=== PATIENT | male | born 2000 | race Caucasian/White ===

== ENCOUNTER 2023-09-11 18:22 | Observation (INO) | payer BC, SELFPAY ==
[2023-09-11] VITALS (27 sets, daily range): BP systolic 101–127; BP diastolic 60–85; PULSE 74–126; BMI 27.1
[2023-09-11] MEDS: NSS 1000 IV ×3 (07:52→16:37)
--- NOTE | 2023-09-11 07:58 | ED.GENMED ---
Addendum entered and electronically signed by YVON Mills 09/11/23 15:16:
Pt admitted to resident service Alfonso Murphy attending as per DR Lundberg
Original Note:
History of Present Illness
General
Chief Complaint: Dizziness
Source: patient
Exam Limitations: none
Time Seen by Provider: 09/11/23 07:27
Nursing documentation reviewed up to this point in time: agreed with
Travel History
Have you had any contact with someone who has COVID-19?: No
Do you have any symptoms of coronavirus? Fever > 100 degrees, chills, cough, shortness of breath, sore throat, loss of taste or smell, muscle aches, or headache?: No
History of Present Illness
History of Present Illness:
Patient is a 23-year-old male who reports he got up this morning and felt sick. He walked up steps to get something and then was standing and felt very lightheaded like he was in a pass out. This occurs when he stands up. He denies any recent
illness. He reports he felt fine yesterday. He does have a history of GI issues and is currently the process of being worked by [employer] this involves having diarrhea every day that 2-3 times a day mostly soft. This is unchanged. He denies any
associated chest pain shortness of breath. He denies any recent illness cough . He did have chills in bed this am.
He denies any abdominal pain.
He reports he normally is a good water drinker. Denies any excessive exercise, denies any chest pain shortness of breath. He denies any recent illness fever chills. He denies any drug use. He does not smoke. He only drinks alcohol socially
1�twice a month.
Review of Systems
Review of Systems
Allergies reviewed?: Yes
Other source history: family
All Other Systems: ROS reviewed and negative except as documented in HPI and ROS
Constitutional: Reports chills; Denies fever or fatigue
Respiratory: Reports no symptoms
Cardiac: Reports other (near syncope ); Denies chest pain or palpitations
ABD/GI: Reports no symptoms
: Reports no symptoms
Musculoskeletal: Reports no symptoms
Skin: Reports no symptoms
Neurological: Reports dizzy; Denies headache
Psychiatric: Reports no symptoms
Phy Exam
General Physical Exam
General Presentation: no apparent distress
General age: appears stated age
General Skin: warm and dry
General Habitus: normal
General Mental: alert
General Hydration: dry mucous membranes
Cardiovascular Exam
Cardiovascular Exam: regular rate/rhythm, no murmur and tachycardia
Pulmonary Exam
Pulmonary Exam: lungs clear and no respiratory distress
Neurological Exam
Neurological Exam: alert and oriented x3
Musculoskeletal Exam
Musculoskeletal Exam: full ROM
Skin Exam
Skin Exam: normal color and warm/dry
Psychiatric Exam
Psychiatric Exam: normal mood/affect
Course
Orders/Labs/Results
Orders:
Orders
09/11/23 07:22
Electrocardiogram (*1) Urgent
Reason for Study: Vertigo / Dizzy
EKG- Treatment ONCE
09/11/23 07:51
Complete Blood Count/With Diff Urgent
Comprehensive Metabolic Panel Urgent
Creatine Phosphokinase Urgent
TSH Reflex To Free T4 Urgent
Comment: ADD ON
0.9% Sodium Chloride 1000 ml [Nss] 1,000 ml IV BOLUS
09/11/23 07:55
COVID-19 Antigen Urgent
Source: Nasal Swab
Influenza A+B Rapid Molecular Urgent
CHANELLE Source: Nasal Swab
Specimen Description:
09/11/23 09:51
0.9% Sodium Chloride 1000 ml [Nss] 1,000 ml IV BOLUS
09/11/23 11:10
Add On- LAB Urgent
Tests Added?: cpk, tsh with reflexive t4
09/11/23 12:00
UA Reflex to Culture [Urinalysis Reflex To Culture] Urgent
Date Specimen was Collected: 09/11/23
Time Specimen was Collected: 11:08
Abnormal Lab Results
09/11/23 09/11/23
07:51 12:00
Absolute Lymphs (auto) 0.5 L 10^3/uL
(1.2-3.4)
Neutrophils % 84.5 H %
(42.2-75.2)
Lymphocytes % 7.3 L %
(20.5-51.1)
Glucose 109 H mg/dl
(70-99)
Urine Ketones Trace A
(Negative)
09/11/23 07:51
09/11/23 07:51
Vital Signs
Initial and Last Documented VS:
Initial Vital Signs
Temp Pulse Resp BP Pulse Ox
99.5 F 105 16 127/84 100
09/11/23 07:18 09/11/23 07:18 09/11/23 07:18 09/11/23 07:18 09/11/23 07:18
Last Documented Vital Signs
Temp Pulse Resp BP Pulse Ox
99.5 F 110 32 104/80 99
09/11/23 07:18 09/11/23 12:11 09/11/23 12:11 09/11/23 12:11 09/11/23 12:11
Research Nutritionist consulted with Physician
Research Nutritionist consulted with physician?: Yes
Name of Physician Consulted: noh
MDM/Problems Addressed
Differential Diagnosis Includes:
Not limited to dehydration, virus
MDM/Problems Addressed:
Patient is a 23-year-old male who presented to the ER today for evaluation of dizziness, nausea. Patient started with symptoms this morning. Who presents awake alert he appears dehydrated that he reports he does drink water. He is tachycardic
with sitting or standing and feels very symptomatic dizzy nauseous and feels he is almost in a pass out. He had no associated chest pain. He was given 2 and half liters and continues to feel symptomatic worse with position change on his heart rate
does jump to the 120s with standing. He does not feel well to go home will admit for continued symptoms . case d/c w/ DR Armenta.
*Pulse Oximetry
Patient hypoxic: no
*EKG
Interpreted by ED Provider?: Yes
Heart Rate: 82
Rate: normal
Rhythm: sinus
Ischemia: no ischemia
*Critical Care Note
Total Time (30-74mins, 75-104mins- exclusive of procedures): Not Applicable
ED Attending Note
-
Portions of this chart may have been created with voice recognition software.� Occasional wrong word or��sound alike� substitutions may have occurred due to the inherent limitations of voice recognition software.
Discharge Plan
Departure
Patient Disposition: Admit
Date of Disposition: 09/11/23
Time of Disposition: 12:52
Admit to: Med/Surg
Admit to doctor: hospitalist
Presentation/result/management discussed w/ accepting MD/DO: Hospitalist
Patient with high blood pressure during this ER visit?: No
Condition: Fair
Covid-19: Negative COVID-19
Discharge Problem:
Dizziness
Referrals:
Aroldo Gillette CRNP [Family Provider] -
Interventions
Interventions:
*Risk Screen - Suicide Last Done: 09/11/23 07:36
*General Assessment Last Done: 09/11/23 07:36
*Neglect/Abuse Screening Last Done: 09/11/23 07:36
ED- Fall Risk Assessment Last Done: 09/11/23 07:36
*ED COVID-19 Vaccine History Last Done: 09/11/23 07:18
ED- Neurological Assessment Last Done: 09/11/23 07:36
ED- Cardiac Assessment Last Done: 09/11/23 07:36
Discharge Date and Time
Print Language: DANISH
[2023-09-11 08:10] LABS: % Basophils 0.2 % (0-2); % Eosinophils 1.1 % (0-6); % Immature Granulocytes 0.3 % (0-0.5); % Lymphocytes 7.3 % (20.5-51.1); % Monocytes 6.6 % (1.7-9.3); % Neutrophils 84.5 % (42.2-75.2); Absolute Eosinophils 0.1 10^3/uL (0-0.7); Absolute Lymphocytes 0.5 10^3/uL (1.2-3.4); Absolute Monocytes 0.4 10^3/uL (0.1-0.6); Absolute Neutrophils 5.6 10^3/uL (1.4-6.5); Hematocrit 42.2 % (39.0-52.0); Hemoglobin 14.7 g/dL (13.0-18.0); Mean Corp Hgb Conc. 34.8 g/dL (33.0-37.0); Nucleated Red Blood Cells % 0 % (-); Platelet Count 161 10^3/uL (130-400); Red Blood Cell Count 4.74 10^6/uL (4.70-6.10); Red Cell Dist. Width 11.9 % (11.5-14.5); White Blood Cell Count 6.6 10^3/uL (4.8-10.8)
[2023-09-11 08:24] LABS: ALT (SGPT) 27 U/L (0-50); AST (SGOT) 25 U/L (17-59); Albumin 4.2 g/dl (3.5-5.0); Alkaline Phosphatase 57 U/L (38-126); Blood Urea Nitrogen 16 mg/dl (9-20); Calcium 9.3 mg/dl (8.4-10.2); Carbon Dioxide 25 mmol/L (22-30); Chloride 103 mmol/L (98-107); Estimated Creatinine Clearance > 125 ml/min; Glucose 109 mg/dl (70-99); Potassium 3.9 mmol/L (3.5-5.1); Sodium 136 mmol/L (135-145); Total Bilirubin 1.1 mg/dl (0.2-1.3); Total Protein 6.8 g/dl (6.3-8.2); eGFR > 60.00
[2023-09-11 08:25] LABS: COVID-19 Antigen Negative (Negative)
[2023-09-11 11:47] LABS: Creatine Phosphokinase 75 U/L (55-170)
[2023-09-11 12:13] LABS: TSH Reflex To Free T4 1.69 uIU/ml (0.47-4.68)
[2023-09-11 12:26] LABS: Urine Albumin Negative (Neg - Trace); Urine Bilirubin Negative (Negative); Urine Character Clear (Clear); Urine Color Yellow; Urine Glucose Negative (Negative); Urine Ketone Trace (Negative); Urine Leukocyte Negative (Negative); Urine Nitrite Negative (Negative); Urine Occult Blood Negative (Negative); Urine Specific Gravity 1.025 (<1.030); Urine Urobilinogen Negative (Neg - 1+)
--- NOTE | 2023-09-11 20:30 | HPS.HSE ---
Addendum entered and electronically signed by Tera Murphy MD 09/11/23 22:53:
Attending Addendum-
I performed a history and physical exam of the patient and discussed his management with the resident. I reviewed the resident's note and agree with the documented findings and plan of care Patient presents with mother for presyncope and weakness.
Has had a significant weight loss over last couple of months. recently switched from Adderall to Ritalin and dose increased. Currently patient still getting tachycardic on standing and feeling dizzy in ed. Attempted to DC from ED with close follow
up but still symptomatic. Full 12 point ROS reviewed and negative except as documented Exam- vitals reviewed in chart GEN-nad heart RRR lungs clear abd soft LE no edema Plan:
# Dizziness
- check orthostatic vitals
- possible cardiac med side effect
- may need to decrease dose ritalin
- likely has component of dehydration as well- cont IVF
- check TSH/HBa1c
- cards c/s may need monitor
- check echo
- possible POTS- add fludrocortisone
# ADHD-
- OP titration of meds
- cont ritalin for now but decrease dose by half
# Anxiety
- DC hydroxazine
Dispo- DC home in am after seen by cards
Time spent coordinating care, review of plan of care with resident, review of records, PDMP, med rec, consults, notes, labs, rads, d/w nursing and mother - 76 mins
Original Note:
Family Physician
-
Family Physician: YVON Atkins
Chief Complaint
-
Dizziness
History of Present Illness
23-year-old male with history of ADHD, GI problems, migraines, presents to the ED in company of his mother with complaints of dizziness and mild nausea on standing. Onset was this morning when he got out of bed and tried to walk up some stairs. He
became dizzy and felt 'like I was going to pass out'. Symptoms improved with rest. Denies fever but notes chills in the morning mild headache. HR noted to rise from 60s to 140s in ED when pt got up from supine position to use the bathroom. Denies
chest pain, shortness of breath, recent illness or cough. History of episodic dizziness and fainting noted since 20 years of age. Episodes usually accompanied tachycardia, and are notably worse in hot weather. He has GI-related poor appetite weight
loss of about 40-50lbs in last 2 months, but stays hydrated. He was last evaluated at [facility] in 2021, but notes that multiple ED visits over the years resulted in normal EKG and discharge to home. He has never been evaluated by a clinical partner.
He recalls normal active childhood with normal activity, participation in sports, without symptoms.
He also has a history of panic attacks, with similar symptoms.
Medical History
Past Medical History
Past Medical History: Reports Other (ADHD, chronic diarrhea, migraine)
Additional Past Medical History:
ADHD, chronic diarrhea, migraines
Past Surgical History: Reports Other ([place] teeth removal)
Additional Past Surgical History:
[place] teeth removal 5 years ago
Social History
Tobacco: Non-smoker
Alcohol: Occasional (1 or 2 drinks a month)
Drug: None
Personal: Single
Living: With Family
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
Family History
Family History: Hypertension and Other (Hypothyroidism, GI problems)
Allergies / Home Medications
Allergies
Allergy/AdvReac Type Severity Reaction Status Date / Time
amoxicillin Allergy Unknown Verified 09/11/23 07:21
Penicillins Allergy Unknown Verified 09/11/23 07:21
Home Medications
methylphenidate HCl 20 mg tablet 20 mg PO BID 09/11/23
Trazodone 50 mg daily at bedtime as needed for insomnia
Hydroxyzine 100 mg p.o. daily as needed for panic disorder
Allergy/Medication List:
Allergies
Allergy/AdvReac Type Severity Reaction Status Date / Time
amoxicillin Allergy Unknown Verified 09/11/23 07:21
Penicillins Allergy Unknown Verified 09/11/23 07:21
Review of Systems
-
History Source: Patient and Family
A 12 point ROS was completed and negative except as noted: Yes
Constitutional: Reports Weight Loss and Other (poor appetite); Denies Fever
Respiratory: Reports No Symptoms; Denies Cough or Trouble Breathing
Cardiac: Reports Palpitations and Syncope (presyncope); Denies Chest Pain
Abdomen/GI: Reports Abdominal Pain and Diarrhea; Denies Nausea or Vomiting
: Denies Dysuria, Difficulty Voiding or Bleeding
Neurological: Reports Dizzy and Headache
Physical Exam
Vital Signs
Vital Signs
Temp Pulse Resp BP Pulse Ox
99.1 F 69 18 121/80 100
09/11/23 16:40 09/11/23 16:40 09/11/23 16:40 09/11/23 16:40 09/11/23 16:40
Physical Exam
General: Well Developed, Well Nourished, No Apparent Distress, Comfortable and Conversant; No Respiratory Distress
HEENT: NormoCephalic, Anicteric and Other (Dry mucous membranes)
Respiratory: Clear and Non Labored Respirations; No Wheezes, Rales, Rhonchi, Crackles or Accessory Resp Muscle Use
Cardiac: S1/S2, Regular Rhythm and Tachycardia (On standing)
GI: Soft, Non Tender and Non Distended
Musculoskeletal: No Clubbing, No Cyanosis and No Edema
Skin: Warm, Dry and Rash (Diffuse rash on back)
Neuro: Awake, Alert and Oriented
Psych: Calm
Laboratory Results
-
09/11/23 07:51
09/11/23 07:51
Laboratory Results
Total Bilirubin 1.1 mg/dl (0.2-1.3) 09/11/23 07:51
AST 25 U/L (17-59) 09/11/23 07:51
ALT 27 U/L (0-50) 09/11/23 07:51
Alkaline Phosphatase 57 U/L (38-126) 09/11/23 07:51
Impression/Plan
-
IMPRESSION: 23-year-old male with history of episodic presyncope/syncope, history of ADHD, chronic diarrhea, migraines, presented to the ED with dizziness.
PLAN:
Acute problems
Dizziness:
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
ADHD
Panic disorder
Chronic diarrhea
#Dizziness:
Dehydration vs POTS, vs other cause of presyncope
EKG showed premature supraventricular complexes, sinus rhythm
TSH normal
BMP normal
-Fluid boluses in ED
-Symptoms persist after fluid boluses, will observe overnight. Cardiology consult in a.m.
#ADHD
Continue methylphenidate
#Panic disorder:
Hold hydroxyzine due to possible adverse effect of dizziness
Insomnia:
Hold trazodone due to possible adverse effect of dizziness, and ineffectiveness per patient
Chronic diarrhea:
Longstanding, stable
Is actively in GI workup outpatient
Electrolytes stable
DVT prophylaxis: SCD
CODE STATUS: Full code
[2023-09-12] VITALS (10 sets, daily range): BP systolic 115–128; BP diastolic 67–89
[2023-09-12] MEDS: NSS 1000 IV ×2 (00:58→11:50)
[2023-09-12 05:21] LABS: Blood Urea Nitrogen 7 mg/dl (9-20); Calcium 9.2 mg/dl (8.4-10.2); Carbon Dioxide 28 mmol/L (22-30); Chloride 104 mmol/L (98-107); Estimated Creatinine Clearance > 125 ml/min; Glucose 84 mg/dl (70-99); Potassium 3.7 mmol/L (3.5-5.1); Sodium 138 mmol/L (135-145); eGFR > 60.00
--- NOTE | 2023-09-12 06:48 | CON.CAR ---
Consultation
Consultation Request
Date/Time Consultation Requested: 09/11/2023 1815
Date/Time Consultation Performed: 09/12/2023 0630
Requesting Provider: Peyton Yuan MD
Performing Provider: Tylor Shi DO
Reason for Consultation: Palpitations
Medical History
-
Chief Complaint: Dizziness
History of Present Illness:
It is a pleasure to see Mr. Avery in consultation today. As you are aware, patient is a 23-year-old male with a past medical history significant for ADHD, panic disorder, chronic diarrhea and abdominal discomfort who presents due to worsening
dizziness and dehydration. Cardiology consulted for discussion on dehydration/dizziness and palpitations. Patient had reported lightheaded and dizziness with position changes at home and palpitations. The symptoms had worsened and he proceeded to
emergency department for further evaluation. Patient noted in the ER to have elevated heart rate with position changes when standing noting heart rate to increase above 100. Patient had improvement in symptoms following IV fluids overnight. In
discussion with patient, he reports a longstanding history of near-syncope with episodes of syncope associated with his panic disorder. He notes a prodrome prior to passing out including sensation of blood rushing away from his core to his
extremities with associated lightheadedness dizziness followed by syncope. Additionally, patient is experienced episodes of syncope associated with dehydration including most recently 2 weeks ago with severe upper and lower GI gastroenteritis and
syncope associated with rapid position change followed by emesis standing up again feeling lightheaded and dizzy and then passing out. 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
his jobs without complication but has noted once with dehydration associated with significant moving going from basement to the top floor he began to feel lightheaded and dizzy but symptoms abated following hydration. Patient has not undergone
cardiology evaluation in the past. Patient has undergone GI evaluation and is changing to a different GI doctor. Patient reports longstanding chronic diarrhea with multiple bowel movements per day which are affecting his life. He reports
hydration but no increased salt intake. He notes ADHD on Ritalin without improvement and plan for discontinuation. He notes panic disorder without improvement on hydroxyzine. Patient is a non-smoker, rare alcohol, no illicits. Patient does not
ingest caffeine. No family history of heart disease. No family history of channelopathy or sudden cardiac .
Past Medical History
Past Medical History: Other (See HPI)
Past Surgical History: Other ([place] teeth)
Social History
Tobacco: Non-Smoker
Alcohol: Occasional
Drug: None
Personal: Single
Living: With Family
Employment: Employed
Family History
Family History: Reviewed & Not Pertinent
Allergies / Home Medications
Allergy/AdvReac Type Severity Reaction Status Date / Time
amoxicillin Allergy Unknown Verified 09/11/23 07:21
Penicillins Allergy Unknown Verified 09/11/23 07:21
�Medication �Instructions �Recorded �Confirmed �Type
methylphenidate HCl 20 mg tablet 20 mg PO BID 09/11/23 09/11/23 History
Review of Systems
-
History Source: Patient
All other systems: Negative unless noted
Constitutional: Weight Loss and Other (Poor appetite/hydration)
EENT: No Symptoms
Respiratory: No Symptoms
Cardiac: Palpitations
Abdomen/GI: Abdominal Pain and Diarrhea
: No Symptoms
Musculoskeletal: No Symptoms
Skin: No Symptoms
Neurological: Dizzy and Other (Syncope (none recent))
Endocrine: No Symptoms
Hematologic/Lymphatic: No Symptoms
Physical Exam
Vital Signs
Temp Pulse Resp BP Pulse Ox
99.1 F 58 15 112/70 96
09/11/23 16:40 09/11/23 23:45 09/11/23 23:45 09/11/23 23:00 09/11/23 23:45
Lab Results
09/11/23 07:51
09/12/23 04:42
Physical Exam
General: Well Developed, Well Nourished, No Apparent Distress and Comfortable
HEENT: Normocephalic, Anicteric and Moist Mucous Membranes
Respiratory: Clear and Non Labored Respirations
Cardiac: S1/S2, Regular Rhythm and Other (No murmur, rub, gallop; no carotid bruit appreciated)
Breast: Deferred by me
GI: Soft, Non Tender, Non Distended and Normal Bowel Sounds
Rectal: Deferred by Provider
Musculoskeletal: No Clubbing, No Cyanosis and No Edema
Skin: Warm and Dry
Neuro: Awake, Alert and Oriented
Psych: Calm
Impression / Plan
-
Primary: YVON Atkins
.
Assessment:
Dizziness, near syncope
- Noted in the setting of decreased fluid intake, chronic diarrhea
- HR increased with position changes, improved with IVF
- Occurring with positional change, chronic
- No syncope on admission; noted syncope 2 weeks ago with gastroenteritis
- EKG SR, PACs
Palpitations, chronic
- longstanding fluttering, mild
- Noted on admission with increased HR with position
- EKG SR, PACs; tele notes SR, PACs, brief PAT (p-wave morphology change); improved with hydration
Diarrhea, chronic, frequent
- follows with GI, recent provider change, undergoing extensive eval
Anxiety
ADHD
Recommendations
- 2D echocardiogram to assess cardiac size, shape,function, and valvular anatomy, if normal and patient stable, can likely DC for outpatient cardiology follow-up
- increased oral hydration in the setting of GI losses; if echo normal, can also add salt to diet to improve symptoms
- Conservative therapy including avoiding triggers such as hot weather/climates/environments, increased hydration, recumbent exercise, compression stockings, avoiding alcohol/caffeine
- Patient reporting that he plans to stop methylphenidate, this may also improve palpitations with discontinuation
- Outpatient monitor at follow-up visit
- Follow closely/frequently with PCP and GI; treatment for diarrhea will likely improve symptoms
Data Reviewed
-
EKG: Tracing Personally Visualized and interpreted
Radiology: Report Reviewed by me
Labs: Labs Reviewed by me
Old Records: Reviewed
[2023-09-12] MEDS: RITALIN 10 MG PO (08:17)
[2023-09-12] MEDS: FLORINEF 0.100000000000000006 MG PO (08:17)
[2023-09-12 08:56] LABS: Glycohemoglobin (HgbA1c) 5.5 % (4.0-5.6)
[2023-09-12] MEDS: ZOFRAN 4 MG PO (11:50)
[2023-09-12] MEDS: RITALIN PO (14:28)
--- NOTE | 2023-09-12 15:10 | W.DCSUMMARY ---
Addendum entered and electronically signed by Tera Murphy MD 09/13/23 00:06:
Attending Addendum:
Read reviewed and agree. See same day progress note for additional details. Patient DC'd on 1/2 dose ritalin (sctrip written) and PPI/H2 rubi, close follow up cards and GI.
Alfonso Murphy MD
Original Note:
Documented by User: Peyton Yuan MD, Resident 09/12/23 15:41
Discharge Summary
Discharge Data
Date of Admission: 09/11/23
Date of Discharge: 09/12/23
-
Pending Results: Yes
Additional Pending Results:
Echocardiogram
Hospital Course
Dell is a 23-year-old male with a history of episodic presyncope/syncope, history of ADHD, chronic diarrhea, migraines, who presented to the ED with dizziness and mild nausea. Onset was in the morning after he got out of bed.
HOSPITAL COURSE:
Dizziness:
At presentation, EKG showed premature supraventricular complexes, sinus rhythm. Vitals were stable in supine position, with notable increase in HR from 60s to 140s on standing. He was given IVF boluses in the ED, and was admitted after only minimal
symptoms relief. Echocardiogram performed in the morning. Cardiology was consulted in the morning, and recommendations included medication changes, and lifestyle changes, with keen outpatient cardiology follow up. Nause worsened in the morning as
well, and Ondansetron was provided.
#ADHD
Methylphenidate dose was halved (20mg to 10mg PO BID) due to possible adverse effect of tachycardia. To follow up soon with his psychiatrist.
#Panic disorder:
Hydroxyzine was held due to possible adverse effect of dizziness/tachycardia. Recommend follow up with psychiatrist
#Insomnia:
Trazodone was held due to possible adverse effect of dizziness/drowsiness, and ineffectiveness according to patient. Recommend follow up with PCP
#Chronic diarrhea:
Longstanding history, stable. Dell is actively in outpatient GI workup. Recommend OTC acid competency evaluated nurse aide, and keen followup with equity structurer
DVT prophylaxis during stay with sequential compression device
TSH normal
BMP normal
Echocardiogram: Pending results at time of discharge
Discharge Plan
-
Patient Disposition: Home (Routine Discharge)
Discharge Diagnosis/Procedures: Dizziness, nausea
Condition: Good
Diet: No restrictions
Additional Diets: Increase oral hydration
Activity: No restrictions and As tolerated
Driving Restrictions: As prior to admission
Bathing Restrictions: None
Activity Restrictions/Additional Instructions:
- Strong recommendation to follow up soon with cardiology
[facility]
[address] [place], [place]

- Please follow up with your PCP - Nain Kendrick, and psychiatrist within 2 weeks of discharge
- Please follow up with equity structurer
[facility]
[address]

Instructions: Dizziness, Nonvertigo, (DC)
Referrals:
Aroldo Gillette CRNP [Family Provider] -
Prescriptions:
New
ondansetron HCl 4 mg Tablet
4 mg PO Q8HPRN PRN (Reason: nausea) Qty: 10 0RF
Discontinued
hydroxyzine pamoate 100 mg Capsule
100 mg PO DAILYPRN PRN (Reason: panic attacks)
trazodone 50 mg Tablet
50 mg PO HSPRN PRN (Reason: insomnia)
methylphenidate HCl 20 mg Tablet
20 mg PO BID
Discharge Orders:
Discharge Patient (As Directed); Ordered 09/12/23
Ordered By: Peyton Yuan
Discharge Date and Time
Discharge Date/Time: 09/12/23 16:12
Print Language: BELGIAN

Documented by User: Tera [email or web address] MD 09/12/23 23:58
Discharge Summary
Discharge Data
Date of Admission: 09/11/23
Date of Discharge: 09/12/23
Discharge Plan
-
Patient Disposition: Home (Routine Discharge)
Discharge Diagnosis/Procedures: Dizziness, nausea
Condition: Good
Diet: No restrictions
Additional Diets: Increase oral hydration
Activity: No restrictions and As tolerated
Driving Restrictions: As prior to admission
Bathing Restrictions: None
Activity Restrictions/Additional Instructions:
- Strong recommendation to follow up soon with cardiology
[facility]
[address] [place], [place]

- Please follow up with your PCP - Nain Kendrick, and psychiatrist within 2 weeks of discharge
- Please follow up with equity structurer
[facility]
[address]

Instructions: Dizziness, Nonvertigo, (DC)
Referrals:
Aroldo Gillette CRNP [Family Provider] -
Prescriptions:
New
ondansetron HCl 4 mg Tablet
4 mg PO Q8HPRN PRN (Reason: nausea) Qty: 10 0RF
Discontinued
hydroxyzine pamoate 100 mg Capsule
100 mg PO DAILYPRN PRN (Reason: panic attacks)
trazodone 50 mg Tablet
50 mg PO HSPRN PRN (Reason: insomnia)
methylphenidate HCl 20 mg Tablet
20 mg PO BID
Discharge Orders:
Discharge Patient (As Directed); Ordered 09/12/23
Ordered By: Peyton Yuan
Discharge Date and Time
Discharge Date/Time: 09/12/23 16:12
Print Language: BELGIAN
--- NOTE | 2023-09-12 15:35 | CM ---
Addendum entered by Jose Garrison 09/12/23 15:48:
OBS status reviewed, OBS letter signed, placed on chart, pt has a copy.
Original Note:
CM following re: discharge planning.
Reviewed pt's chart, met with pt.
Pt is a 23 year old male admitted with primary dx of Dizziness, ADHD. Cardiology following.
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 Pt described himself as independent in all areas [employer], drives, works.
Pt is aware he will be discharged home today and he stated his mother will transport home.
PCP: Aroldo Gillette
Pharmacy: [facility].
D/C plan: home no needs. Mother to transport.
--- NOTE | 2023-09-12 19:06 | W.PN.HOSP.TC ---
Addendum entered and electronically signed by Tera Murphy MD 09/13/23 00:04:
Attending Addendum-I saw and evaluated the patient. I reviewed the resident�s note and agree with findings and plan as documented in the resident�s note.
Full 12 point ROS reviewed and negative except as documented patient complains of extreme nausea after breakfast time am. no vom. Exam- vitals reviewed in chart GEN-nad heart RRR lungs clear abd soft LE no edema Plan:
# Dizziness
- improved
- possible cardiac med side effect
- decrease dose ritalin
- likely has component of dehydration as well
- check TSH/HBa1c- neg
- cards c/s appreciate input likely due to dehydration and meds - f/u as OP
- check echo- wnl
- DC fludro
# Abd sxs/ nausea-
- start PPI
- fu OP GI
# ADHD-
- OP titration of meds
- cont ritalin for now but decrease dose by half
# Anxiety
- DC hydroxazine
Dispo- DC home with mother
Time spent coordinating care, review of plan of care with resident, review of records, DC planning, transition of care, med rec, consults, notes, labs, rads, d/w nursing and mother - 36 mins
Original Note:
Today's Communication/Plan
-
Discharge planning
Assessment / Plan
Assessment / Plan
IMPRESSION: 23-year-old male with history of episodic presyncope/syncope, history of ADHD, chronic diarrhea, migraines, presented to the ED with dizziness.
PLAN:
Acute problems
Dizziness:
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
ADHD
Panic disorder
Insomnia
Chronic diarrhea
#Dizziness:
Dehydration vs POTS, vs medication adverse effect vs other cause of presyncope
EKG showed premature supraventricular complexes, sinus rhythm
TSH normal
BMP normal
-Cardiology input appreciated
-Ondansetron for nausea
-IVF
-Discontinue fludrocortisone
-Preventive measures discussed with patient, encouraged outpatient cardiology follow up
#ADHD
Continue methylphenidate at halved dose 10mg PO BID due to dizziness and tachycardia
- Encourage outpatient psychiatry F/U
#Panic disorder:
Hold hydroxyzine due to possible adverse effect of dizziness
Insomnia:
Hold trazodone due to possible adverse effect of dizziness, and ineffectiveness per patient
Chronic diarrhea:
Longstanding, stable
Continue GI outpt workup
Electrolytes stable
DVT prophylaxis: SCD
CODE STATUS: Full code
Anticipated Discharge: Today
Subjective/Interval History
-
Date of Service: September 12, 2023
Pt complains of fatigue and nausea today. Dizziness mostly resolved.
Objective Data
-
Vital Signs:
Vital Signs
Temp Pulse Resp BP Pulse Ox
98.7 F 69 18 128/80 100
09/12/23 16:00 09/12/23 16:00 09/12/23 16:00 09/12/23 16:00 09/12/23 16:00
Review of Systems
-
History Source: Patient
Constitutional: Reports Fatigue
Respiratory: Reports No Symptoms
Cardiac: Reports No Symptoms; Denies Chest Pain or Palpitations
Abdomen/GI: Reports Nausea
Genitourinary: Reports No Symptoms and Dysuria
Neuro: Reports Dizzy
Physical Exam
-
General: Well Developed, Well Nourished and Other (appears uncomfortable)
HEENT: Normocephalic, Atraumatic, Moist Mucous Membranes and Anicteric
Respiratory: Clear to Auscultation and Non Labored Respirations; Negative Wheezes, Rales, Rhonchi, Crackles or Accessory Resp Muscle Use
Cardiac: Regular Rhythm and S1/S2; Negative Murmur, Rub, Calf Tenderness, Tachycardic or Bradycardic
GI: Soft, Nontender and Nondistended
Musculoskeletal: No Clubbing, No Cyanosis and No Edema
Skin: Warm, Dry and Rash (hyperpigmented macular rash on back)
Neuro: Awake, Alert and Oriented
Psych: Calm
== END 2023-09-12 16:12 | disposition home or self-care (01) ==
LOC: ED 18:22
PROVIDERS: Nurse Practitioner; Student in an Organized Health Care Education/Training Program; ADMITTING PHYSICIAN Family Medicine; CONSULT PHYSICIAN Internal Medicine Cardiovascular Disease; EMERGENCY PHYSICIAN Emergency Medicine; FAMILY PHYSICIAN Nurse Practitioner Family
DX: R42 Dizziness and giddiness (principal); R11.0 Nausea; R55 Syncope and collapse; R63.4 Abnormal weight loss; F90.9 Attention-deficit hyperactivity disorder, unspecified type; F41.0 Panic disorder [episodic paroxysmal anxiety]; R63.0 Anorexia; G47.00 Insomnia, unspecified; I49.1 Atrial premature depolarization; R00.2 Palpitations; E86.0 Dehydration; R19.7 Diarrhea, unspecified; G43.909 Migraine, unspecified, not intractable, without status migrainosus; Z83.79 Family history of other diseases of the digestive system; Z82.49 Family history of ischemic heart disease and other diseases of the circulatory system; Z83.49 Family history of other endocrine, nutritional and metabolic diseases; Z88.0 Allergy status to penicillin; Z11.52 Encounter for screening for COVID-19
CPT/HCPCS: 80048; 80053; 81003; 82550; 83036; 84443; 85025; 87502; 87811; 93005; 93306; 96360; 96361; 99285; G0378

== ENCOUNTER 2024-08-19 09:53 | Emergency (ER) | payer BC, SELFPAY ==
[2024-08-19 10:07] VITALS: BP 139/91
[2024-08-19 10:46] LABS: % Eosinophils 0.2 % (0-6); % Immature Granulocytes 0.2 % (0-0.5); % Lymphocytes 16.7 % (20.5-51.1); % Monocytes 6.6 % (1.7-9.3); % Neutrophils 76.3 % (42.2-75.2); Absolute Lymphocytes 0.8 10^3/uL (1.2-3.4); Absolute Monocytes 0.3 10^3/uL (0.1-0.6); Absolute Neutrophils 3.6 10^3/uL (1.4-6.5); Hematocrit 47.4 % (39.0-52.0); Hemoglobin 16.8 g/dL (13.0-18.0); Mean Corp Hgb Conc. 35.4 g/dL (33.0-37.0); Mean Corpuscular Hgb 31.7 pg (27.0-31.0); Mean Corpuscular Volume 89.4 fL (80.0-94.0); Mean Platelet Volume 9.5 fL (7.4-10.4); Nucleated Red Blood Cells % 0 % (-); Platelet Count 205 10^3/uL (130-400); Red Cell Dist. Width 11.6 % (11.5-14.5); White Blood Cell Count 4.7 10^3/uL (4.8-10.8)
[2024-08-19 11:07] LABS: ALT (SGPT) 50 U/L (0-50); AST (SGOT) 32 U/L (17-59); Albumin 4.8 g/dl (3.5-5.0); Alkaline Phosphatase 60 U/L (38-126); Blood Urea Nitrogen 9 mg/dl (9-20); Calcium 10.1 mg/dl (8.4-10.2); Carbon Dioxide 30 mmol/L (22-30); Chloride 100 mmol/L (98-107); Glucose 107 mg/dl (70-99); Lipase 61 U/L (23-300); Potassium 3.6 mmol/L (3.5-5.1); Sodium 140 mmol/L (135-145); Total Bilirubin 1.1 mg/dl (0.2-1.3); Total Protein 7.9 g/dl (6.3-8.2); Troponin I < 0.012 ng/ml; eGFR > 60.00
--- NOTE | 2024-08-19 11:57 | ED.GENMED ---
History of Present Illness
General
Chief Complaint: Abdominal Symptoms
Source: patient
Exam Limitations: none
Time Seen by Provider: 08/19/24 11:47
Nursing documentation reviewed up to this point in time: agreed with
History of Present Illness
History of Present Illness:
24 yo male with hx ADHD, episodic syncope/presyncope, presents for intermittent faint feeling, blurry vision, ears ringing, hands and feet tingling past 3 days. Today at work 'I felt like I was gonna pass out, my vision got blurry, my ears were
ringing and my hands and feet got numb.'
He's had numerous episodes in past 3-4 years, 'passed out' multiple times, not positional, had similar episode and admitted here 09/10-09/12/2023, had normal echo and EKG, workup neg.
He says 'they think I have POTS' He was told to get the POTS workup but he never did as it was 'too complicated and involved'
He does have appt. with his crankshaft grinder at [place] next week.
Past History
Past History
ED Past Medical History: Psychiatric (ADHD)
ED Past Surgical History: None
Social History
Tobacco: Non-smoker
Alcohol: None
Personal: Single
Living: with family
Employment: Employed (works for [employer])
Review of Systems
Review of Systems
Allergies reviewed?: Yes
All Other Systems: ROS reviewed and negative except as documented in HPI and ROS
Constitutional: Denies fever or fatigue
Respiratory: Denies trouble breathing
Cardiac: Denies chest pain, diaphoresis, palpitations or syncope
ABD/GI: Reports diarrhea (chronic, followed by GI); Denies abdominal pain, nausea or vomiting
: Denies dysuria, frequency or difficulty voiding
Musculoskeletal: Reports no symptoms
Skin: Reports no symptoms
Neurological: Reports other (tingling in hands and feet, near syncope); Denies headache or weakness
Phy Exam
Physical Exam
Physical Exam:
GENERAL: No acute distress. A&Ox3.
CONSTITUTIONAL: Afebrile.
EYES: clear, conjunctivae normal
ENMT: moist mucus membranes
RESPIRATORY: Regular respirations, nonlabored, lungs clear.
CARDIOVASCULAR: Regular rate and rhythm, no murmurs, no rubs.
GI: Soft, nontender, normal BS
MUSCULOSKELETAL: Moves with ease. Well perfused.
SKIN: Warm, dry, pink
PSYCH: Normal mood and affect. Well kept, interactive and appropriate
NEUROLOGIC: Awake, alert and oriented. No focal neurological deficits. Ambulates well with steady gait.
Course
Orders/Labs/Results
Orders:
Orders
08/19/24 10:10
Electrocardiogram (*1) Urgent
Reason for Study: Palpitations
EKG- Treatment ONCE
08/19/24 10:25
Complete Blood Count/With Diff Urgent
Comprehensive Metabolic Panel Urgent
Lipase Urgent
Troponin I Urgent
08/19/24 12:08
Orthostatic VS- Treatment ONCE
Abnormal Lab Results
08/19/24
10:25
WBC 4.7 L 10^3/uL
(4.8-10.8)
MCH 31.7 H pg
(27.0-31.0)
Absolute Lymphs (auto) 0.8 L 10^3/uL
(1.2-3.4)
Neutrophils % 76.3 H %
(42.2-75.2)
Lymphocytes % 16.7 L %
(20.5-51.1)
Glucose 107 H mg/dl
(70-99)
08/19/24 10:25
08/19/24 10:25
Vital Signs
Initial and Last Documented VS:
Initial Vital Signs
Temp Pulse Resp BP Pulse Ox
98.1 F 95 16 139/91 100
08/19/24 10:07 08/19/24 10:07 08/19/24 10:07 08/19/24 10:07 08/19/24 10:07
Last Documented Vital Signs
Temp Pulse Resp BP Pulse Ox
98.1 F 95 16 139/91 100
08/19/24 10:07 08/19/24 10:07 08/19/24 10:07 08/19/24 10:07 08/19/24 10:07
MDM/Problems Addressed
Differential Diagnosis Includes:
orthostatic hypotension, dehydration, hypoglycemia
MDM/Problems Addressed:
24 yo male with hx ADHD, episodic syncope/presyncope, presents for intermittent faint feeling, blurry vision, ears ringing, hands and feet tingling past 3 days. Today at work 'I felt like I was gonna pass out, my vision got blurry, my ears were
ringing and my hands and feet got numb.'
He's had numerous episodes in past 3-4 years, 'passed out' multiple times, not positional, had similar episode and admitted here 09/10-09/12/2023, had normal echo and EKG, workup neg.
He says 'they think I have POTS' He was told to get the 'POTS workup' but he never did as it was 'too complicated and involved'
He is followed by crankshaft grinder and does have appt. with his crankshaft grinder at [place] next week.
NAD, calm
Normal neuro exam
11:50 AM:
EKG NSR with sinus arrhythmia
CBC, CMP normal
Troponin WNL
Lipase normal
Orthostatics neg
Pt asymptomatic here. Nothing worrisome in w/u
Stable for DC and f/u with Cardiology as scheduled
*Critical Care Note
Total Time (30-74mins, 75-104mins- exclusive of procedures): Not Applicable
ED Attending Note
-
Portions of this chart may have been created with voice recognition software.� Occasional wrong word or��sound alike� substitutions may have occurred due to the inherent limitations of voice recognition software.
Discharge Plan
Departure
Patient Disposition: Home (Routine Discharge)
Date of Disposition: 08/19/24
Time of Disposition: 12:52
Patient with high blood pressure during this ER visit?: No
Condition: Good
Discharge Problem:
History of fainting, Near syncope
Instructions: Near Fainting (DC)
Prescriptions:
No Action
ondansetron HCl 4 mg Tablet
4 mg PO Q8HPRN PRN (Reason: nausea) Qty: 10 0RF
Referrals:
Your, Security Flex Utility Officer [Other] - Keep scheduled appt
Aroldo Gillette CRNP [Family Provider] -
Activity Restrictions/Additional Instructions:
As we discussed, your workup here today shows nothing worrisome. Keep your appointment with your crankshaft grinder next week.
Interventions
Interventions:
*Risk Screen - Suicide Last Done: 08/19/24 10:11
*General Assessment Last Done: 08/19/24 12:02
*Neglect/Abuse Screening Last Done: 08/19/24 10:11
*ED- Fall Risk Assessment Last Done: 08/19/24 12:02
*Nursing Disposition Last Done: 08/19/24 12:59
GQ-Xejkra-Eknlbtlhux Assessment Last Done: 08/19/24 12:02
Discharge Date and Time
Discharge Date/Time: 08/19/24 13:00
Print Language: SAMI
[2024-08-19 12:08] VITALS: BP 131/85; BP 146/97; BP 148/94; PULSE 108; PULSE 130; PULSE 76
== END 2024-08-19 13:00 | disposition home or self-care (01) ==
LOC: EMR 09:53
PROVIDERS: Emergency Medicine; EMERGENCY PHYSICIAN Emergency Medicine; FAMILY PHYSICIAN Nurse Practitioner Family
DX: R55 Syncope and collapse (principal); F90.9 Attention-deficit hyperactivity disorder, unspecified type; H93.13 Tinnitus, bilateral
CPT/HCPCS: 99283; 80053; 83690; 84484; 85025; 93005

== ENCOUNTER → 2024-09-16 08:01 | Outpatient (REF) | payer BC, SELFPAY | LOC: HWRAD 08:01 | PROVIDERS: ATTENDING PHYSICIAN Student in an Organized Health Care Education/Training Program | DX: R11.0 Nausea (principal); R63.0 Anorexia | CPT/HCPCS: 76700 ==